=== PATIENT | female | born 1955 | race Caucasian/White ===

== ENCOUNTER 2023-06-12 13:42 | Inpatient (IN) | payer MEDICARE, BC ==
[2023-06-12 15:25] LABS: BASOPHILS ABSOLUTE AUTO 0.04 K/uL (0.00-0.20); BASOPHILS PERCENT AUTO 0.3 % (0.0-1.0); HEMATOCRIT 43.3 % (37.0-47.0); HEMOGLOBIN 15.7 g/dL (12.0-16.0); IMMATURE GRAN ABSOLUTE AUTO 0.03 K/uL (0.00-0.05); IMMATURE GRAN PERCENT AUTO 0.2 % (0.0-0.4); LYMPHOCYTES ABSOLUTE AUTO 0.61 K/uL (1.00-4.80); LYMPHOCYTES PERCENT AUTO 4.7 % (24.0-44.0); MEAN CORPUSCULAR HGB CONC 36.3 g/dL (32.0-36.0); MEAN CORPUSCULAR VOLUME 85.6 fL (83.0-99.0); MONOCYTES ABSOLUTE AUTO 0.42 K/uL (0.00-0.80); MONOCYTES PERCENT AUTO 3.3 % (0.0-8.0); NEUTROPHILS ABSOLUTE AUTO 11.81 K/uL (1.80-7.70); NEUTROPHILS PERCENT AUTO 91.5 % (41.0-71.0); PLATELET COUNT,PLT 257 K/uL (150-400); RED BLOOD CELL COUNT 5.06 M/uL (4.10-5.30); WHITE BLOOD CELL COUNT,WBC 12.91 K/uL (3.9-11.3)
[2023-06-12 15:40] LABS: INR 1.04 (0.86-1.11); PTT,PARTIAL THROMBOPLSTIN TIME 26.1 SEC (23.9-30.7)
[2023-06-12 15:45] LABS: APPEARANCE,URINE CLEAR; BILIRUBIN,URINE NEGATIVE (NEGATIVE); COLOR,URINE YELLOW; GLUCOSE,URINE NEGATIVE (NEGATIVE); KETONES,URINE TRACE mg/dL (NEGATIVE); LEUKOCYTE ESTERASE,URINE SMALL (NEGATIVE); NITRITE,URINE NEGATIVE (NEGATIVE); OCCULT BLOOD,URINE NEGATIVE (NEGATIVE); PH,URINE 5.5 (5.0-8.0); PROTEIN,URINE 30 mg/dL (NEGATIVE); UROBILINOGEN,URINE 0.2 EU/dL (<2.0)
[2023-06-12 15:51] LABS: BACTERIA,URINE FEW (NEGATIVE); MUCUS,URINE MODERATE (NONE-MOD); SQUAMOUS EPITHELIAL CELLS,UR OCCASIONAL
[2023-06-12 15:54] LABS: A/G RATIO 1.1 (0.9-1.6); ALBUMIN 3.8 g/dL (3.4-5.0); BILIRUBIN TOTAL 0.7 mg/dL (0.2-1.0); CALCIUM 10.7 mg/dL (8.5-10.1); CARBON DIOXIDE,CO2 25.9 mmol/L (21.0-32.0); CREATININE 1.2 mg/dL (0.6-1.0); EST CRCL DRUG DOSING (CG) 36.97 mL/min; LACTIC ACID 1.7 mmol/L (0.4-2.0); MAGNESIUM 1.4 mg/dL (1.8-2.4); POTASSIUM,K 3.1 mmol/L (3.5-5.1); PROTEIN TOTAL,TP 7.3 g/dL (6.4-8.2)
[2023-06-12] MEDS ORDERED: Iopamidol 755 MG/ML 500 ML Multipack Bottle IVPUSH STA (16:16)
[2023-06-12] MEDS ORDERED: Potassium Chloride 20 MEQ Tab.ER PO ONE (16:16)
[2023-06-12] MEDS ORDERED: Magnesium Sulfate/Water 2 GM in Premix Bag 1 BAG IV ONE (16:16)
[2023-06-12] MEDS ORDERED: Piperacillin/Tazobactam 4.5 GM in Sodium Chloride 0.9% 100 ML IV ONE (18:32)
[2023-06-12] MEDS ORDERED: Ondansetron 4 MG/2 ML SDV IVPUSH PRN (20:46)
[2023-06-12] MEDS ORDERED: Morphine 2 MG/ML SYRINGE IVPUSH PRN (20:47)
[2023-06-12] MEDS: Sodium Chloride 0.9% 1,000 ML IV SCH (21:55)
[2023-06-12 22:57] LABS: BASOPHILS ABSOLUTE AUTO 0.05 K/uL (0.00-0.20); BASOPHILS PERCENT AUTO 0.4 % (0.0-1.0); HEMATOCRIT 39.2 % (37.0-47.0); HEMOGLOBIN 14.3 g/dL (12.0-16.0); IMMATURE GRAN ABSOLUTE AUTO 0.04 K/uL (0.00-0.05); IMMATURE GRAN PERCENT AUTO 0.3 % (0.0-0.4); LYMPHOCYTES ABSOLUTE AUTO 1.05 K/uL (1.00-4.80); LYMPHOCYTES PERCENT AUTO 7.7 % (24.0-44.0); MEAN CORPUSCULAR HEMOGLOBIN 31.1 pg (28.0-32.0); MEAN CORPUSCULAR HGB CONC 36.5 g/dL (32.0-36.0); MEAN CORPUSCULAR VOLUME 85.2 fL (83.0-99.0); MEAN PLATELET VOLUME 9.8 fL (9.4-12.3); MONOCYTES ABSOLUTE AUTO 0.76 K/uL (0.00-0.80); MONOCYTES PERCENT AUTO 5.6 % (0.0-8.0); PLATELET COUNT,PLT 231 K/uL (150-400)
[2023-06-12] MEDS: Pantoprazole 40 MG in Sodium Chloride 0.9% 10 ML IVPUSH SCH (23:25)
[2023-06-12] MEDS: Piperacillin/Tazobactam 3.375 GM in Sodium Chloride 0.9% 100 ML IV SCH (23:28)
[2023-06-13 05:39] LABS: BASOPHILS ABSOLUTE AUTO 0.03 K/uL (0.00-0.20); BASOPHILS PERCENT AUTO 0.2 % (0.0-1.0); EOSINOPHILS ABSOLUTE AUTO 0.01 K/uL (0.00-0.45); EOSINOPHILS PERCENT AUTO 0.1 % (0.0-6.0); HEMATOCRIT 36.5 % (37.0-47.0); HEMOGLOBIN 13.2 g/dL (12.0-16.0); IMMATURE GRAN ABSOLUTE AUTO 0.06 K/uL (0.00-0.05); IMMATURE GRAN PERCENT AUTO 0.4 % (0.0-0.4); LYMPHOCYTES ABSOLUTE AUTO 1.04 K/uL (1.00-4.80); LYMPHOCYTES PERCENT AUTO 7.5 % (24.0-44.0); MEAN CORPUSCULAR HEMOGLOBIN 31.1 pg (28.0-32.0); MEAN CORPUSCULAR HGB CONC 36.2 g/dL (32.0-36.0); MEAN CORPUSCULAR VOLUME 85.9 fL (83.0-99.0); MEAN PLATELET VOLUME 9.8 fL (9.4-12.3); MONOCYTES ABSOLUTE AUTO 0.79 K/uL (0.00-0.80); MONOCYTES PERCENT AUTO 5.7 % (0.0-8.0); NEUTROPHILS ABSOLUTE AUTO 11.95 K/uL (1.80-7.70); NEUTROPHILS PERCENT AUTO 86.1 % (41.0-71.0); PLATELET COUNT,PLT 225 K/uL (150-400); RED BLOOD CELL COUNT 4.25 M/uL (4.10-5.30); WHITE BLOOD CELL COUNT,WBC 13.88 K/uL (3.9-11.3)
[2023-06-13 06:03] LABS: CALCIUM 9.3 mg/dL (8.5-10.1); CARBON DIOXIDE,CO2 25.9 mmol/L (21.0-32.0); CREATININE 1.2 mg/dL (0.6-1.0); EST CRCL DRUG DOSING (CG) 36.97 mL/min; MAGNESIUM 1.7 mg/dL (1.8-2.4); PHOSPHORUS 2.8 mg/dL (2.6-4.7); POTASSIUM,K 3.5 mmol/L (3.5-5.1); PROTEIN TOTAL,TP 5.9 g/dL (6.4-8.2)
[2023-06-13] MEDS: Sodium Chloride 0.9% 1,000 ML IV SCH (06:15)
[2023-06-13] MEDS: Piperacillin/Tazobactam 3.375 GM in Sodium Chloride 0.9% 100 ML IV SCH (06:19)
[2023-06-13] MEDS ORDERED: Magnesium Sulfate/Water 2 GM in Premix Bag 1 BAG IV ONE (07:18)
[2023-06-13] MEDS ORDERED: NS with KCl 40mEq 1,000 ML IV ONE (07:45)
[2023-06-13] MEDS ORDERED: Hydrochlorothiazide 25 MG Tab PO SCH (09:00)
[2023-06-13] MEDS: Metoprolol Succinate 50 MG Tab.ER PO SCH (09:05)
[2023-06-13] MEDS: Piperacillin/Tazobactam 4.5 GM in Sodium Chloride 0.9% 100 ML IV SCH ×2 (12:20→19:26)
[2023-06-13] MEDS ORDERED: Sodium Chloride 0.9% 2.5 ML Syringe FLUSH PRN (12:27)
[2023-06-13] MEDS ORDERED: Sodium Chloride 0.9% 10 ML Syringe FLUSH PRN (12:27)
[2023-06-13] MEDS: oxyCODONE 5 MG Tab PO PRN ×3 (14:30→23:30)
[2023-06-13] MEDS ORDERED: Dicyclomine 10 MG Cap PO PRN (16:05)
[2023-06-13] MEDS: Pantoprazole 40 MG in Sodium Chloride 0.9% 10 ML IVPUSH SCH (23:24)
[2023-06-14] MEDS: oxyCODONE 5 MG Tab PO PRN ×2 (04:22→08:57)
[2023-06-14] MEDS: Piperacillin/Tazobactam 4.5 GM in Sodium Chloride 0.9% 100 ML IV SCH (04:22)
[2023-06-14 05:17] LABS: BASOPHILS ABSOLUTE AUTO 0.05 K/uL (0.00-0.20); BASOPHILS PERCENT AUTO 0.4 % (0.0-1.0); EOSINOPHILS PERCENT AUTO 0.7 % (0.0-6.0); HEMATOCRIT 32.4 % (37.0-47.0); HEMOGLOBIN 11.5 g/dL (12.0-16.0); IMMATURE GRAN ABSOLUTE AUTO 0.11 K/uL (0.00-0.05); IMMATURE GRAN PERCENT AUTO 0.8 % (0.0-0.4); LYMPHOCYTES PERCENT AUTO 12.1 % (24.0-44.0); MEAN CORPUSCULAR HEMOGLOBIN 31.3 pg (28.0-32.0); MEAN CORPUSCULAR HGB CONC 35.5 g/dL (32.0-36.0); MEAN PLATELET VOLUME 9.9 fL (9.4-12.3); MONOCYTES PERCENT AUTO 6.4 % (0.0-8.0); NEUTROPHILS ABSOLUTE AUTO 11.23 K/uL (1.80-7.70); NEUTROPHILS PERCENT AUTO 79.6 % (41.0-71.0); PLATELET COUNT,PLT 171 K/uL (150-400); RED BLOOD CELL COUNT 3.68 M/uL (4.10-5.30); WHITE BLOOD CELL COUNT,WBC 14.09 K/uL (3.9-11.3)
[2023-06-14 05:37] LABS: CALCIUM 8.6 mg/dL (8.5-10.1); CARBON DIOXIDE,CO2 24.5 mmol/L (21.0-32.0); CREATININE 1.1 mg/dL (0.6-1.0); EST CRCL DRUG DOSING (CG) 40.33 mL/min; MAGNESIUM 1.8 mg/dL (1.8-2.4); POTASSIUM,K 3.9 mmol/L (3.5-5.1)
[2023-06-14] MEDS: Metoprolol Succinate 50 MG Tab.ER PO SCH (08:56)
[2023-06-14] MEDS ORDERED: metroNIDAZOLE 250 MG Tab PO ONE (10:30)
[2023-06-14] MEDS ORDERED: Ciprofloxacin 500 MG Tab PO ONE (10:30)
[2023-06-14 11:36] VITALS: BP 121/69; PULSE 77
== END 2023-06-14 11:45 | disposition home or self-care (01) | DRG 392 ==
LOC: MW.ED 13:42 → MW.MS 18:39
PROVIDERS: ADMIT Internal Medicine; ATTEND Internal Medicine
DX: K52.9 Noninfective gastroenteritis and colitis, unspecified (principal); K62.5 Hemorrhage of anus and rectum; I10 Essential (primary) hypertension; Z79.899 Other long term (current) drug therapy; Z90.710 Acquired absence of both cervix and uterus
CPT/HCPCS: 36415; 74177; 80053; 81001; 83605; 83690; 83735; 84484; 85025; 85610; 85730; 86850; 86900; 86901; A9270; J2543; J3475; J3490; Q9967; 80048; 82947; 84100; 87045; 87046; 87324; 87449; 87899; 99284; C9113; J2270; J3480; J7030

== ENCOUNTER 2023-09-23 15:39 | Emergency (ER) | payer MEDICARE, BC ==
[2023-09-23] MEDS: Sodium Chloride 0.9% 1,000 ML IV ONE (16:15)
[2023-09-23 16:41] LABS: BASOPHILS ABSOLUTE AUTO 0.08 K/uL (0.00-0.20); BASOPHILS PERCENT AUTO 0.4 % (0.0-1.0); EOSINOPHILS ABSOLUTE AUTO 0.09 K/uL (0.00-0.45); EOSINOPHILS PERCENT AUTO 0.5 % (0.0-6.0); HEMOGLOBIN 14.7 g/dL (12.0-16.0); IMMATURE GRAN ABSOLUTE AUTO 0.08 K/uL (0.00-0.05); IMMATURE GRAN PERCENT AUTO 0.4 % (0.0-0.4); LYMPHOCYTES ABSOLUTE AUTO 1.41 K/uL (1.00-4.80); LYMPHOCYTES PERCENT AUTO 7.7 % (24.0-44.0); MEAN CORPUSCULAR HEMOGLOBIN 30.6 pg (28.0-32.0); MEAN CORPUSCULAR HGB CONC 35.9 g/dL (32.0-36.0); MEAN CORPUSCULAR VOLUME 85.2 fL (83.0-99.0); MEAN PLATELET VOLUME 9.4 fL (9.4-12.3); MONOCYTES ABSOLUTE AUTO 1.05 K/uL (0.00-0.80); MONOCYTES PERCENT AUTO 5.8 % (0.0-8.0); NEUTROPHILS ABSOLUTE AUTO 15.49 K/uL (1.80-7.70); NEUTROPHILS PERCENT AUTO 85.2 % (41.0-71.0); PLATELET COUNT,PLT 286 K/uL (150-400); RED BLOOD CELL COUNT 4.81 M/uL (4.10-5.30)
[2023-09-23] MEDS: Iopamidol 755 Mg/ML 100 ML Bottle IVPUSH STA (16:50)
[2023-09-23 17:08] LABS: A/G RATIO 0.9 (0.9-1.6); ALBUMIN 2.7 g/dL (3.4-5.0); BILIRUBIN TOTAL 0.4 mg/dL (0.2-1.0); CALCIUM 9.8 mg/dL (8.5-10.1); CARBON DIOXIDE,CO2 24.2 mmol/L (21.0-32.0); CREATININE 1.1 mg/dL (0.6-1.0); EST CRCL DRUG DOSING (CG) 39.79 mL/min; MAGNESIUM 1.7 mg/dL (1.8-2.4); POTASSIUM,K 3.1 mmol/L (3.5-5.1); PROTEIN TOTAL,TP 5.7 g/dL (6.4-8.2)
[2023-09-23] MEDS: Potassium Chloride 20 MEQ Tab.ER PO ONE (17:26)
[2023-09-23] MEDS: Magnesium Oxide 400 MG Tab PO ONE (17:26)
[2023-09-23 18:19] VITALS: BP 118/76; PULSE 82
== END 2023-09-23 18:19 | disposition home or self-care (01) ==
LOC: MW.ED 15:39
DX: A04.72 Enterocolitis due to Clostridium difficile, not specified as recurrent (principal); I10 Essential (primary) hypertension; Z79.899 Other long term (current) drug therapy
CPT/HCPCS: 36415; 74177; 80053; 82378; 83605; 83690; 83735; 85025; 87040; 87045; 87046; 87324; 87328; 87329; 87449; 87899; 96360; 96361; 99284; A9270; J7030; Q9967

== ENCOUNTER 2025-01-14 13:10 | Emergency (ER) | payer MEDICARE, BC ==
[2025-01-14 15:37] LABS: BASOPHILS ABSOLUTE AUTO 0.05 K/uL (0.00-0.20); BASOPHILS PERCENT AUTO 0.7 % (0.0-1.0); EOSINOPHILS ABSOLUTE AUTO 0.08 K/uL (0.00-0.45); EOSINOPHILS PERCENT AUTO 1.1 % (0.0-6.0); IMMATURE GRAN ABSOLUTE AUTO 0.02 K/uL (0.00-0.05); IMMATURE GRAN PERCENT AUTO 0.3 % (0.0-0.4); LYMPHOCYTES ABSOLUTE AUTO 1.66 K/uL (1.00-4.80); LYMPHOCYTES PERCENT AUTO 22.5 % (24.0-44.0); MEAN PLATELET VOLUME 9.6 fL (9.4-12.3); MONOCYTES ABSOLUTE AUTO 0.55 K/uL (0.00-0.80); MONOCYTES PERCENT AUTO 7.4 % (0.0-8.0); NEUTROPHILS ABSOLUTE AUTO 5.03 K/uL (1.80-7.70); NEUTROPHILS PERCENT AUTO 68.0 % (41.0-71.0); NRBC ABSOLUTE 0.00 K/uL (0.00-0.02); NRBC PERCENT 0.0 /100WBC (0.0-0.2); PLATELET COUNT,PLT 241 K/uL (150-400); RED BLOOD CELL COUNT 4.50 M/uL (4.10-5.30); WHITE BLOOD CELL COUNT,WBC 7.39 K/uL (3.9-11.3)
[2025-01-14 15:58] LABS: BLOOD UREA NITROGEN,BUN 19.0 mg/dL (7.0-18.0); CARBON DIOXIDE,CO2 28.6 mmol/L (21.0-32.0); CHLORIDE,CL 100.0 mmol/L (98-107); CREATININE 1.0 mg/dL (0.6-1.0); EST CRCL DRUG DOSING (CG) 43.18 mL/min; ESTIMATED GFR 62.0 mL/min (>60); GLUCOSE RANDOM 106.0 mg/dL (74-106); POTASSIUM,K 3.9 mmol/L (3.5-5.1); SODIUM,NA 136.0 mmol/L (136-145)
[2025-01-14 16:42] LABS: APPEARANCE,URINE CLEAR; GLUCOSE,URINE NEGATIVE (NEGATIVE); OCCULT BLOOD,URINE NEGATIVE (NEGATIVE)
[2025-01-14 16:50] LABS: EPITHELIAL CELLS,URINE OCCASIONAL (NONE-FEW)
[2025-01-14 17:21] VITALS: BP 106/65; PULSE 56
== END 2025-01-14 17:20 | disposition home or self-care (01) ==
LOC: MW.ED 13:10
DX: N13.2 Hydronephrosis with renal and ureteral calculous obstruction (principal); N39.0 Urinary tract infection, site not specified; M54.50 Low back pain, unspecified; I10 Essential (primary) hypertension; Z79.899 Other long term (current) drug therapy
CPT/HCPCS: 36415; 72100; 74176; 80048; 81001; 83690; 85025; 99284; A9270

== ENCOUNTER 2025-06-06 07:51 | Day surgery (SDC) | payer MEDICARE, BC ==
[~2025-06-06 07:51] MED LIST: Albuterol 0.083% 2.5 MG/3 ML Neb Soln NEB PRN; Naloxone 0.4 MG/ML SDV IVPUSH PRN; Ondansetron 4 MG/2 ML SDV IVPUSH PRN; ceFAZolin 2 GM in Water For Injection, Sterile 20 ML IVPUSH ONE; fentaNYL 50 MCG/ML SDV IVPUSH PRN
[2025-06-06] MEDS ORDERED: Propofol 200 MG/20 ML SDV ONE (08:06)
[2025-06-06] MEDS ORDERED: dexmedeTOMIDine HCl 200 MCG/2 ML SDV ONE (08:06)
[2025-06-06] MEDS ORDERED: fentaNYL 100 MCG/2 ML SDV ONE (08:06)
[2025-06-06] MEDS: Lactated Ringers 1,000 ML IV SCH (08:29)
[2025-06-06] MEDS ORDERED: Ondansetron 4 MG/2 ML SDV ONE (10:34)
[2025-06-06] MEDS ORDERED: Dexamethasone 4 MG/ML 5 ML MDV ONE (10:34)
[2025-06-06] MEDS ORDERED: ePHEDrine 50 MG/ML SDV ONE (10:36)
[2025-06-06 13:10] VITALS: BP 138/84; PULSE 77
== END 2025-06-06 13:57 | disposition home or self-care (01) ==
LOC: MW.SDS 07:51
PROVIDERS: ATTEND Surgery
DX: C25.9 Malignant neoplasm of pancreas, unspecified (principal); I10 Essential (primary) hypertension; Z79.899 Other long term (current) drug therapy
CPT/HCPCS: 36561; 71045; 76000; A9270; C1788; J0665; J0690; J1100; J1642; J2003; J2405; J2704; J3010; J7120; 00532; J3490